=== PATIENT | male | born 1995 | race Caucasian/White ===

== ENCOUNTER 2017-02-24 15:38 | Emergency (ER) | payer OTHER ==
[2017-02-24 16:00] VITALS: RESP 18; TEMP 98.1; O2SAT 97
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
[2017-02-24 17:20] VITALS: BP 128/66; PULSE 67
== END 2017-02-24 17:20 | disposition home or self-care (01) ==
LOC: C.ER 15:38
DX: S09.90XA Unspecified injury of head, initial encounter (principal); S70.12XA Contusion of left thigh, initial encounter; Y08.89XA Assault by other specified means, initial encounter; Y92.89 Other specified places as the place of occurrence of the external cause

== ENCOUNTER 2017-10-18 08:09 | Emergency (ER) | payer OTHER ==
[2017-10-18] MEDS ORDERED: Sodium Chloride 0.9% 1,000 ML IV ONE (08:28)
[2017-10-18] MEDS ORDERED: Sodium Chloride 0.9% 1,000 ML ONE (08:44)
[2017-10-18 08:50] LABS: BASO # 0.1 K/uL (0.0-0.2); BASO % 0.4 % (0.0-2.0); EOS # 0.2 K/uL (0.0-0.7); EOS % 1.3 % (0.0-4.0); LYMPH # 0.8 K/uL (1.0-4.3); LYMPH % 6.7 % (20.0-40.0); MEAN CELL VOLUME 86.4 fL (80.0-94.0); MEAN CORPUSCULAR HEMOGLOBIN 29.5 pg (27.0-31.0); MEAN CORPUSCULAR HGB CONC 34.1 g/dL (33.0-37.0); MEAN PLATELET VOLUME 7.4 fL (7.2-11.7); MONO # 0.6 K/uL (0.0-0.8); NEUT % 86.6 % (50.0-75.0); PLATELET COUNT 353 K/uL (130-400); RBC 5.42 Mil/uL (4.40-5.90); RED CELL DISTRIBUTION WIDTH 13.9 % (11.5-14.5); WHITE BLOOD COUNT 12.7 K/uL (4.8-10.8)
[2017-10-18 08:59] LABS: INR 1.1; PROTHROMBIN TIME 12.3 SECONDS (9.7-12.2)
[2017-10-18 09:02] LABS: ALB/GLOB RATIO 1.2 (1.0-2.1); ALBUMIN 4.7 g/dL (3.5-5.0); ALT/SGPT 64 U/L (21-72); AST/SGOT 42 U/L (17-59); BLOOD UREA NITROGEN 19 mg/dL (9-20); GFR AFRICAN-AMERICAN > 60; GFR NON-AFRICAN AMERICAN > 60; LIPASE 67 U/L (23-300)
--- NOTE | 2017-10-18 09:04 | C.PDOC ---
History Of Present Illness 22-year-old male, presents to the emergency department with complaints of abdominal pain since last night. Patient has had nausea/vomiting and diarrhea. He denies fever. Pt had lasagna last night. No other complaints at this time. Time Seen by Provider: 10/18/17 08:22 Chief Complaint (Nursing): Abdominal Pain History Per: Patient History/Exam Limitations: no limitations Current Symptoms Are (Timing): Still Present Past Medical History Reviewed: Historical Data, Nursing Documentation, Vital Signs Vital Signs: Last Vital Signs Temp 98.5 F 10/18/17 12:22 Pulse 108 H 10/18/17 12:22 Resp 16 10/18/17 12:22 BP 114/72 10/18/17 12:22 Pulse Ox 99 10/18/17 12:22 - Medical History PMH: Asthma Family History: States: No Known Family Hx - Social History Hx Tobacco Use: No Hx Alcohol Use: Yes (Socially) Hx Substance Use: No - Immunization History Hx Tetanus Toxoid Vaccination: No Hx Influenza Vaccination: No Hx Pneumococcal Vaccination: No Review Of Systems Constitutional: Negative for: Fever Gastrointestinal: Positive for: Nausea, Vomiting, Abdominal Pain, Diarrhea Physical Exam - Physical Exam Appears: Non-toxic, No Acute Distress Skin: Normal Color, Warm, Dry, No Rash Head: Atraumatic, Normacephalic Eye(s): bilateral: Normal Inspection Nose: Normal Oral Mucosa: Moist Lips: Normal Appearing Neck: Normal ROM Chest: Symmetrical Cardiovascular: Rhythm Regular, No Murmur Respiratory: Normal Breath Sounds, No Accessory Muscle Use Gastrointestinal/Abdominal: Soft, Tenderness (mild non-focal ), No Guarding, No Rebound Extremity: Normal ROM, No Deformity, No Swelling Neurological/Psych: Oriented x3, Normal Speech, Normal Cognition ED Course And Treatment - Laboratory Results Result Diagrams: 10/18/17 08:42 10/18/17 08:42 O2 Sat by Pulse Oximetry: 96 (RA) Pulse Ox Interpretation: Normal Medical Decision Making Medical Decision Making: ro colitis gastritis, appendicitis- labs imaging pending pt reassesed paim improved. ct shows mild colitis. antibiotics given. pt states feels well for d.c Disposition - Disposition Referrals: [facility] [Outside] [facility] [Outside] David Gilliam MD [Staff Provider] - Disposition: HOME/ ROUTINE Disposition Time: 12:00 Condition: STABLE Additional Instructions: please follow up with your doctor/clinic. return to er with worsening symptoms or concerns. Prescriptions: Ciprofloxacin [Cipro] 500 mg PO BID #14 tab metroNIDAZOLE [Flagyl] 500 mg PO TID #21 tab Instructions: Bacterial Gastroenteritis, Child (DC), Acute Abdomen (Belly Pain) Forms: [employer] ([place]) - Clinical Impression Clinical Impression: Abdominal pain, Colitis - Scribe Statement The provider has reviewed the documentation as recorded by the Scribe (Alan Miller) All medical record entries made by the Scribe were at my direction and personally dictated by me. I have reviewed the chart and agree that the record accurately reflects my personal performance of the history, physical exam, medical decision making, and the department course for this patient. I have also personally directed, reviewed, and agree with the discharge instructions and disposition.
[2017-10-18 09:16] LABS: EOSINOPHIL 4 % (0-4); LYMPHOCYTE 7 % (20-40); MONOCYTE 5 % (0-10); NEUTROPHIL 84 % (50-75); TOTAL CELLS COUNTED 100
[2017-10-18 09:17] LABS: PLATELET ESTIMATE NORMAL (NORMAL)
[2017-10-18] MEDS ORDERED: Iodixanol 320 mg/ml 150 ml Bottle IV ONE (10:49)
[2017-10-18 10:54] LABS: URINE BILIRUBIN NEGATIVE (NEGATIVE); URINE BLOOD 1+ (NEGATIVE); URINE CLARITY Clear (Clear); URINE COLOR Yellow (YELLOW); URINE GLUCOSE (UA) NORMAL (Normal); URINE LEUKOCYTE ESTERASE NEG Leu/uL (Negative); URINE PROTEIN NEGATIVE (NEGATIVE); URINE UROBILINOGEN NORMAL mg/dL (0.2-1.0)
--- NOTE | 2017-10-18 11:51 | CT ---
Date of service: 10/18/2017 PROCEDURE: CT Abdomen and Pelvis with contrast HISTORY: Abdominal pain, vomiting diarrhea COMPARISON: None. TECHNIQUE: CT scan of the abdomen and pelvis was performed after administration of intravenous contrast. Oral contrast was not administered. Coronal and sagittal reformatted images were obtained. Contrast Contrast dose: 100 mL Visipaque 320 Radiation dose: Total exam DLP = 1370.84 mGy-cm. This CT exam was performed using one or more of the following dose reduction techniques: Automated exposure control, adjustment of the mA and/or kV according to patient size, and/or use of iterative reconstruction technique. FINDINGS: LOWER THORAX: The visualized lungs are clear. LIVER: The liver is normal in size and there is diffuse fatty infiltration. No gross lesion or ductal dilatation. GALLBLADDER AND BILE DUCTS: There are no calcified gallstones. PANCREAS: Normal in size with homogeneous enhancement. No gross lesion or ductal dilatation. SPLEEN: Mild splenomegaly. ADRENALS: No discrete nodule. KIDNEYS AND URETERS: Normal in size with homogeneous enhancement. No hydronephrosis. No solid mass. VASCULATURE: No aortic aneurysm. BOWEL: There are fluid-filled mildly dilated small bowel loops and fluid in the colon. No bowel obstruction. APPENDIX: Normal appendix. PERITONEUM: No free fluid. No free air. LYMPH NODES: No enlarged lymph nodes. BLADDER: Unremarkable. REPRODUCTIVE: The uterus is normal in size. BONES: No acute fracture. Within normal limits for the patient's age. OTHER FINDINGS: There is a small sliding hiatal hernia. IMPRESSION: No CT evidence for acute appendicitis. Fluid-filled mildly dilated small bowel loops and fluid in the colon likely represents nonspecific infectious/ inflammatory enterocolitis. No bowel obstruction. Fatty liver and mild splenomegaly. Small sliding hiatal hernia.
[2017-10-18 12:23] VITALS: BP 114/72; PULSE 108; RESP 16; TEMP 98.5
[2017-10-18 14:00] VITALS: O2SAT 96
== END 2017-10-18 12:56 | disposition home or self-care (01) ==
LOC: C.ER 08:09
DX: K52.9 Noninfective gastroenteritis and colitis, unspecified (principal)
CPT/HCPCS: 74177; 80053; 81001; 83690; 85025; 85610; 85730; 96361; 96374; 96375; 99285; C9113; J2405; J7030; Q9967